=== PATIENT | female | born 1965 | race Two or more races ===

== ENCOUNTER 2020-03-27 14:45 | Inpatient (IN) | payer MEDICARE, OTHER ==
[~2020-03-27] VITALS: Ht 165.1 cm; Wt 67.6 kg
--- NOTE | 2020-03-27 19:10 | NUR ---
GPS RN-NOTE:ADMISSION ADMITTED A 54-YR OLD FEMALE, FROM [facility]. ADMITTED ON 5150 FOR DTO. PER HOLD, PT. ADMITTED D/T INCREASED BIZARRE BEHAVIORS. FAMILY REPORTS, CLIENT REPORTS SHE IS WORKING FOR THE [employer]. DAUGHTER REPORTS CLIENT THREATENED TO SHOOT HER AND HAS BEEN ACTING ERRATIC. UPON FACE TO FACE ASSESSMENT, PATIENT IS A/OX3, LABILE MOOD, PT HAS BEEN DISRUPTIVE, VERY LOUD AND DEMANDING, ANXIOUS, IRRITABLE, DISORGANIZED, PROMPTING FREQUENT REDIRECTIONS. PT WAS ADVISED OF THE HOLD. PT'S RIGHTS HANDBOOK AND A GUIDE TO PRESCRIPTION MEDICATIONS GIVEN. IN NO APPARENT DISTRESS NOTED. BELONGINGS WERE INVENTORIED AND CHECKED FOR CONTRABAND. PT. IS UNDER THE PSYCHIATRIC CARE OF DR. SALGADO ORDERS OBTAINED, AND UNDER THE MEDICAL CARE OF DR. DUNHAM. SKIN BODY ASSESSMENT DONE. SKIN IS INTACT. PT DENIES PAIN/ DISCOMFORT . BED LOCKED AND PLACED IN LOWEST POSITION TO MAINTAIN SAFETY. FALL PRECAUTIONS IMPLEMENTED. WILL CONTINUE TO MONITOR Q15 MINS. FOR SAFETY AND BEHAVIOR.
[2020-03-27 19:30] VITALS: BP 148/60
[2020-03-27] MEDS ORDERED: DIVA500T4 PO (20:15)
[2020-03-27] MEDS ORDERED: BLOOD SUGAR DIAGNOSTIC 1 EACH STRIP IN ONE (20:30)
[2020-03-27 20:46] VITALS: BP 148/60
[2020-03-27] MEDS: ACETAMINOPHEN 325 MG TABLET PO PRN (21:07)
--- NOTE | 2020-03-27 21:07 | NUR ---
GPS-RN NOTE: PATIENT C/O ABDOMINAL PAIN. PT. REQUESTED FOR TYLENOL. ADMINISTERED PRN TYLENOL ORDERED. WILL CONTINUE TO MONITOR AND ASSESS FOR EFFECTIVENESS.
[2020-03-27] MEDS ORDERED: NICO-760 TD (21:47)
[2020-03-27] MEDS: LORAZEPAM 0.5 MG TABLET PO PRN (23:12)
--- NOTE | 2020-03-27 23:12 | NUR ---
GPS-RN NOTE: ANXIETY PATIENT IS VERY ANXIOUS, YELLING AND SCREAMING TOWARDS STAFF, INTRUSIVE, VERY LOUD AND DEMANDING. ADMINISTERED ATIVAN 0.5MG PO ORDERED. WILL CONTINUE TO MONITOR FOR SAFETY AND BEHAVIOR.
[2020-03-27] MEDS: TEMAZEPAM 7.5 MG CAPSULE PO PRN (23:45)
--- NOTE | 2020-03-27 23:45 | NUR ---
GPS-RN NOTE: INSOMNIA PATIENT C/O INABILITY TO SLEEP. ADMINISTERED RESTORIL 7.5MG PO ORDERED. WILL CONTINUE TO MONITOR.
[2020-03-28] MEDS: LORAZEPAM 0.5 MG TABLET PO PRN (05:13)
--- NOTE | 2020-03-28 05:13 | NUR ---
GPS-RN NOTE: ANXIETY PATIENT IS VERY ANXIOUS, INTRUSIVE AND LOUD. ADMINISTERED ATIVAN 0.5MG PO ORDERED. WILL CONTINUE TO MONITOR FOR SAFETY AND BEHAVIOR.
[2020-03-28 06:49] LABS: ALBUMIN 3.3 g/dL (3.4-5.0); BILIRUBIN,TOTAL 0.2 mg/dL (0.2-1.0); CALCIUM, SERUM 9.3 mg/dL (8.5-10.1); CREATININE 0.7 mg/dL (0.6-1.3); POTASSIUM 4.1 mmol/L (3.5-5.1); TOTAL PROTEIN, SERUM 7.7 g/dL (6.4-8.2)
[2020-03-28 06:52] LABS: CHOLESTEROL 137 mg/dL (<200); HDL CHOLESTEROL 57 mg/dL (40-60); LDL 59 mg/dL (0-99); TRIGLYCERIDES 137 mg/dL (30-150)
[2020-03-28] MEDS ORDERED: OLANZAPINE 10 MG VIAL IM ONE (07:30)
--- NOTE | 2020-03-28 07:34 | NUR ---
RN NOTE: IM MEDICATION PT RECEIVED POSTURING TOWARD STAFF, ATTEMPTING TO HIT STAFF. MANIC, HYPERVERBAL. NOT ABLE TO BE REDIRECTED. INTRUSIVE, ATTEMPTING TO GET INTO NURSES STATION. PT REQUESTING SHOT. NOTIFIED DR. SALGADO. ORDER FOR IM INJECTION. PT VOLUNTARILY LAID ON HER STOMACH AND ACCEPTED INJECTION WITHOUT COMPLICATION OR RESISTANCE. PT IMMEDIATELY STATED, "WHERE'S MY COFFEE?". WILL MONITOR FOR FURTHER AGRESSIVE BEHAVIOR, NEED FOR FURTHER PRN MEDICATION AND SIDE EFFECTS OF IM INJECTION
[2020-03-28 08:00] VITALS: BP 131/98
[2020-03-28] MEDS: NICOTINE PATCH (21MG) 21 MG PATCH.TD24 TD SCH (08:49)
[2020-03-28] MEDS ORDERED: LORAZEPAM INJ 2 MG/ML VIAL IM STA (09:16)
[2020-03-28] MEDS ORDERED: HALOPERIDOL LACTATE INJ 5 MG/ML VIAL IM STA (09:16)
[2020-03-28] MEDS ORDERED: diphenhydrAMINE HCL 50 MG/ML VIAL IM STA (09:16)
--- NOTE | 2020-03-28 09:24 | NUR ---
RN NOTE: IM INJECTION PT CONT TO BE MANIC, AGGRESSIVE TOWARDS STAFF WITH ESCALATING BEHAVIOR. POSTURING AT STAFF. VERBALLY AND PHYSICALL AGGRESSIVE. BANGING ON THE NURSING OFFICE DOOR AND WINDOWS. DELUSIONAL AND PARANOID. REQUESTING IM MEDICATION. ORDER FROM DR. SALGADO FOR HALDOL 5MG, ATIVAN 1MG AND BENADRYL 25 MG IM. PT VOLUNTARILY LAID ON HER STOMACH AND STATED "YES" WHEN TOLD WHAT MEDICATIONS WERE ORDERED. IM TO BILAT GLUT WITHOUT COMPLICATION OR OPPOSITION FROM PT. PT STATED, "THANK YOU". AFTER IM ADMINISTRATION. WILL MONITOR FOR CONT'D AGGRESSIVE BEHAVIOR, IM EFFECTIVENESS AND ADVERSE REACTIONS.
--- NOTE | 2020-03-28 13:00 | NUR ---
RN NOTE: RESPIRATORY AT BEDSIDE FOR EKG
--- NOTE | 2020-03-28 13:00 | NUR ---
RN NOTE - 1:1 ORDER PT CONT TO BE AGITATED WHILE AWAKE. AFTER IM ADMINISTRATION PT FELL ASLEEP. WHILE ATTEMPTING TO GET AN EKG, PT AWAKENED AND BECAME AGGRESSIVE, BELIGERENT AND RESISTIVE. PT MOVED TO ROOM FURTHER AWAY FROM EXIT DOOR. DR. SALGADO NOTIFIED AND 1:1 ORDER MADE.
--- NOTE | 2020-03-28 13:22 | NUR ---
RN-CO: Patient remains restless, non redirectable trying to AWOL. Dr. Alonso ordered 1:1 sitter until further order. For now the Haldol, Ativan, Benadryl that was given to her is ineffective.
--- NOTE | 2020-03-28 15:09 | NUR ---
Family Contact: SW spoke to the pts daughter, Haile ([phone]), and received collateral information for the psychosocial assessment as the pt was not cooperative. JULIUS then discussed the discharge plan to have the pt to return home and the pts daughter agreed.
--- NOTE | 2020-03-28 15:46 | NUR ---
Initial Discharge Plan: Pt currently resides in her home alone located at [address] [place] [address]; ([phone]). Per pt, she would like to return to her home. JULIUS will work with the pt and the MD regarding appropriate discharge planning. SW will form a safe and proper discharge.
--- NOTE | 2020-03-28 15:51 | NUR ---
Individual Counseling: The patient is currently not appropriate for individual counseling as they are manic, agitated and not able to engage in meaningful conversation. The patient will be invited to the next the therapeutic milieu.
[2020-03-28 16:00] VITALS: BP 128/63
[2020-03-28] MEDS ORDERED: OLANZAPINE 5 MG TABLET PO SCH (19:43)
[2020-03-28] MEDS ORDERED: DIVALPROEX SODIUM 500 MG TABLET.DR PO SCH ×2 (20:00→21:00)
--- NOTE | 2020-03-28 20:00 | NUR ---
GPS RN NOTES: THERE IS AN ORDER FOR A 1:1 SITTER FOR THIS PATIENT, HOWEVER NONE PROVIDED AT THIS TIME.WILL CLOSELY MONITOR PATIENT AND HER BEHAVIOR WELL.
[2020-03-28 20:04] VITALS: BP 114/56
[2020-03-29 01:33] LABS: APPEARANCE,URINE CLEAR (CLEAR); BILIRUBIN,URINE NEGATIVE (NEGATIVE); BLOOD, URINE NEGATIVE Ery/uL (NEGATIVE); COLOR,URINE YELLOW (YELLOW); KETONES,URINE NEGATIVE (NEGATIVE); LEUKOCYTE ESTERASE ,URINE TRACE (NEGATIVE); NITRITE, URINE NEGATIVE (NEGATIVE); PROTEIN,URINE NEGATIVE (NEGATIVE); UGLUCOSE NEGATIVE (NEGATIVE); UROBILINOGEN,URINE 0.2 EU/dL (0.2)
[2020-03-29 02:07] LABS: BACTERIA,URINE Few /HPF (None Seen); RBC,URINE 0-2 /HPF (0-2); SQUAMOUS EPITHELIAL CELL,UR Few /HPF (None Seen); WBC,URINE 21-50 /HPF (0-3)
--- NOTE | 2020-03-29 05:41 | NUR ---
GPS-RN NOTE: SEALING MACHINE OPERATOR MÓNICA GLASER NOTIFIED OF URINE WBC RESULTED TO 21-50. URINE CULTURE STILL PENDING. AWAITING FOR CALL BACK.
--- NOTE | 2020-03-29 05:44 | NUR ---
GPS-RN NOTE: PER JOSHUA GLASER NO NEW ORDER AT THIS TIME.
[2020-03-29 07:01] LABS: BASOPHILS % (AUTO) 0.4 % (0.0-2.0); HEMATOCRIT 39 % (33-45); HEMOGLOBIN 12.6 g/dL (11.5-14.8); LYMPHOCYTES # (AUTO) 2.6 /CMM (0.8-4.8); LYMPHOCYTES % (AUTO) 22.1 % (20.0-44.0); MEAN CORPUSCULAR HGB CONC 32 g/dl (31.0-36.0); MEAN CORPUSCULAR VOLUME 82 fL (82-100); MONOCYTES # (AUTO) 1.1 /CMM (0.1-1.30); MONOCYTES % (AUTO) 9.3 % (2.0-12.0); NEUTROPHILS # (AUTO) 7.8 /CMM (1.8-8.9); NEUTROPHILS % (AUTO) 67.2 % (43.0-81.0); PLATELET COUNT (AUTO) 327 /CMM (150-450); RED BLOOD CELL COUNT(AUTO) 4.75 MIL/uL (4.0-5.2); WHITE BLOOD COUNT (AUTO) 11.6 K/uL (4.3-11.0)
[2020-03-29 07:08] LABS: CALCIUM, SERUM 9.8 mg/dL (8.5-10.1); CREATININE 0.9 mg/dL (0.6-1.3); MAGNESIUM 1.7 mg/dL (1.8-2.4); PHOSPHORUS 3.1 mg/dL (2.5-4.9); POTASSIUM 3.8 mmol/L (3.5-5.1)
[2020-03-29 07:24] LABS: THYROID STIMULATING HORMONE 1.541 uIU/mL (0.358-3.74)
[2020-03-29 08:00] VITALS: BP 131/70
[2020-03-29] MEDS: NICOTINE PATCH (21MG) 21 MG PATCH.TD24 TD SCH (08:30)
[2020-03-29] MEDS: ACETAMINOPHEN 325 MG TABLET PO PRN ×2 (08:34→15:26)
--- NOTE | 2020-03-29 09:06 | NUR ---
Pt. is highly agitated, verbally abusive, loud, intrusive, slamming the door and throwing trash can paper in the hallway. Notified Dr. Alonso and ordered Zyprexa 10 mg IM.
[2020-03-29] MEDS ORDERED: OLANZAPINE 10 MG VIAL IM ONE (09:30)
[2020-03-29] MEDS ORDERED: MAGNESIUM OXIDE 400 MG TABLET PO ONE (10:30)
[2020-03-29] MEDS: OLANZAPINE 5 MG TABLET PO SCH ×2 (12:19→17:39)
--- NOTE | 2020-03-29 12:32 | NUR ---
Dr. Alonso came in the unit and ordered to d/c 1:1.
[2020-03-29] MEDS ORDERED: HALOPERIDOL LACTATE INJ 5 MG/ML VIAL IM ONE (14:00)
[2020-03-29] MEDS ORDERED: LORAZEPAM INJ 2 MG/ML VIAL IM ONE (14:00)
[2020-03-29] MEDS ORDERED: diphenhydrAMINE HCL 50 MG/ML VIAL IM ONE (14:00)
--- NOTE | 2020-03-29 14:00 | NUR ---
NURSING NOTE: PT IS IN THE HALLWAY, YELLING AND SCREAMING, AGITATED, THREW WATER AT RN AND THREW MILK AT THE NURSE'S STATION WINDOW, UNABLE TO REDIRECT, DR. SALGADO HAS BEEN NOTIFIED. ORDER FOR ATIVAN 1 MG IM, HALDOL 10 MG IM, BENADRYL 25 MG IM X1 NOW HAS BEEN GIVEN. WILL CONTINUE TO MONITOR FOR SAFETY AND BEHAVIOR.
--- NOTE | 2020-03-29 19:50 | NUR ---
GPS RN OPENING NOTE: RECEIVED PATIENT SLEEPING IN BED.NO ACUTE DISTRESS NOTED. PT COOPERATIVE, EASILY GETS IRRITATED, DEMANDING, REDIRECTABLE, MED COMPLIANT, OFFERED SNACKS TOLERATED WELL. SAFETY PRECAUTIONS IN PLACE, WILL PROVIDE CALM AND STRUCTURED ENVIRONMENT. WILL CONTINUE TO MONITOR Q15MIN ROUNDS FOR SAFETY AND BEHAVIOR.
[2020-03-29] MEDS: CEPHALEXIN MONOHYDRATE 500 MG CAPSULE PO SCH (20:41)
[2020-03-29] MEDS: DIVALPROEX SODIUM 500 MG TABLET.DR PO SCH (20:41)
[2020-03-30] MEDS ORDERED: diphenhydrAMINE HCL 50 MG/ML VIAL IM STA ×2 (07:38)
[2020-03-30] MEDS ORDERED: LORAZEPAM INJ 2 MG/ML VIAL IM STA (07:38)
[2020-03-30] MEDS ORDERED: HALOPERIDOL LACTATE INJ 5 MG/ML VIAL IM STA (07:52)
[2020-03-30 08:00] VITALS: BP 145/59
--- NOTE | 2020-03-30 08:41 | NUR ---
GPS RN NOTE: Chemical Restraint Upon arrival to unit patient was agitated, aggressive, at nursing station banging on door, intrusive. Patient attempted to call 911. Patient is delusional and stated scientific technical writer "killed [employer] Dunne". Patient is not redirectable and when breakfast arrived patient threw down tray on floor. Due to escalating behavior Dr Alonso was notified and an order for IM haldol 10mg Benadryl 25mg and Ativan 1mg was ordered once, now. With the help of staff and security the order was fulfilled around 0815. Will continue to monitor behavior, mood, vital signs and safety Q15 as per GPS policy.
[2020-03-30] MEDS: NICOTINE PATCH (21MG) 21 MG PATCH.TD24 TD SCH ×2 (09:00→12:46)
[2020-03-30] MEDS: OLANZAPINE 5 MG TABLET PO SCH (09:03)
[2020-03-30] MEDS: CEPHALEXIN MONOHYDRATE 500 MG CAPSULE PO SCH ×2 (09:03→21:00)
[2020-03-30] MEDS: ACETAMINOPHEN 325 MG TABLET PO PRN (11:48)
[2020-03-30] MEDS: HALOPERIDOL 5 MG TABLET PO SCH ×2 (12:43→17:00)
--- NOTE | 2020-03-30 12:48 | NUR ---
RT ATTEMPTED TO PERFORM EKG TEST BUT PATIENT REFUSED AND UNCOOPERATIVE. RN AWARE
--- NOTE | 2020-03-30 14:24 | NUR ---
Group Note/Individual Session: SW encouraged the pt to participate in group therapy but the pt is labile and aggressive. Pt has been cursing at the SW, has been accusatory towards the SW and has been banging her hands on the windows of the nursing station. Pt has been refusing her medications and has been receiving multiple IMs daily. SW deemed this pt inappropriate for group at this time.
[2020-03-30 16:00] VITALS: BP 141/56
--- NOTE | 2020-03-30 17:10 | NUR ---
GPS RN NOTE: Med Refusal patient refused 1700 Haldol stating that "it makes me ill". Patient was educated on risks and benefits of taking medication but continued to refuse. will continue to monitor
[2020-03-30 20:38] VITALS: BP 128/46
[2020-03-30] MEDS: DIVALPROEX SODIUM 500 MG TABLET.DR PO SCH (21:00)
--- NOTE | 2020-03-30 22:10 | NUR ---
Pt refused medications Depakote and Keflex 2100. Offered x3 and risk and benefits. Still refused. Charge nurse aware. Will continue to monitor and will endorse to next shift.
[2020-03-31] MEDS: ACETAMINOPHEN 325 MG TABLET PO PRN ×2 (06:13→12:08)
--- NOTE | 2020-03-31 06:16 | NUR ---
Pt c/o back pain 12/20. Tylenol 650 mg po prn given as ordered. Will continue to monitor.
[2020-03-31] MEDS: MAG HYDROX/AL HYDROX/SIMETH 30 ML UDC PO PRN (07:00)
--- NOTE | 2020-03-31 07:02 | NUR ---
Pt c/o indigestion. Maalox 30 ml po prn given as ordered. Will continue to monitor. Will endorse to next shift.
[2020-03-31 08:00] VITALS: BP 153/59
[2020-03-31] MEDS: HALOPERIDOL 5 MG TABLET PO SCH ×2 (08:55→17:33)
[2020-03-31] MEDS: CEPHALEXIN MONOHYDRATE 500 MG CAPSULE PO SCH ×2 (08:55→21:30)
[2020-03-31] MEDS: NICOTINE PATCH (21MG) 21 MG PATCH.TD24 TD SCH (08:56)
[2020-03-31] MEDS ORDERED: HALOPERIDOL 5 MG TABLET PO ONE (12:00)
[2020-03-31] MEDS: DIVALPROEX SODIUM 500 MG TABLET.DR PO SCH (12:07)
[2020-03-31] MEDS: LORAZEPAM 0.5 MG TABLET PO PRN (12:07)
--- NOTE | 2020-03-31 15:24 | NUR ---
GROUP NOTE/INDIVIDUAL SESSION: SW encouraged the pt to participate in group therapy but the pt is labile and verbally aggressive. Pt refused to engage with SW. SW deemed this pt inappropriate for group at this time.
[2020-03-31 16:00] VITALS: BP 135/71
[2020-03-31] MEDS: LITHIUM CARBONATE 150 MG CAPSULE PO SCH (17:32)
[2020-03-31 20:44] VITALS: BP 154/57
--- NOTE | 2020-03-31 21:09 | NUR ---
RN notes Informed and notified Dr. Alonso regarding Pt's meds Depakote 500mg/3 tabs scheduled at 2100 and Depakote 250mg/4 tabs scheduled at 2200. MD ordered to D/C Depakote 500mg/3 tabs and continue Depakote 250mg/4 tabs. Telephone order read back. Order carried out. Charge nurse is aware and informed.
[2020-03-31] MEDS: DIVALPROEX SODIUM 250 MG TABLET.DR PO SCH (21:30)
[2020-04-01 08:00] VITALS: BP 154/90
[2020-04-01] MEDS: DIVALPROEX SODIUM 500 MG TABLET.DR PO SCH (08:33)
[2020-04-01] MEDS: LITHIUM CARBONATE 150 MG CAPSULE PO SCH ×2 (08:33→16:38)
[2020-04-01] MEDS: NICOTINE PATCH (21MG) 21 MG PATCH.TD24 TD SCH (08:33)
[2020-04-01] MEDS: HALOPERIDOL 5 MG TABLET PO SCH ×2 (08:34→16:38)
[2020-04-01] MEDS: CEPHALEXIN MONOHYDRATE 500 MG CAPSULE PO SCH ×2 (08:34→21:09)
[2020-04-01] MEDS: ACETAMINOPHEN 325 MG TABLET PO PRN ×2 (10:18→20:23)
[2020-04-01] MEDS: LORAZEPAM 0.5 MG TABLET PO PRN (10:59)
--- NOTE | 2020-04-01 13:05 | NUR ---
GPS/RN PT IS PACING IN THE HALLWAY. FIXATED ON PHONE CALLS. PORTABLE PHONE PROVIDED REQUESTED. PT IS RUDE AND USES PROFANITY TO STUFF MEMBERS.
[2020-04-01 16:00] VITALS: BP 141/48
[2020-04-01 20:05] VITALS: BP 141/50
--- NOTE | 2020-04-01 20:23 | NUR ---
GPS RN NOTE, PATIENT HAS A COMPLAINT OF A HEADACHE AT 5 OUT 10 ON THE PAIN SCALE AND IS REQUESTING TYLENOL AT THIS TIME. PATIENT VITAL SIGNS ARE STABLE. GAVE TYLENOL 650 MG PO Q6HR PRN ORDERED. WILL REASSESS PAIN AND I WILL CONTINUE TO MONITOR THIS PATIENT.
[2020-04-01] MEDS: DIVALPROEX SODIUM 250 MG TABLET.DR PO SCH (21:09)
[2020-04-02] MEDS: NICOTINE PATCH (21MG) 21 MG PATCH.TD24 TD SCH (07:50)
[2020-04-02] MEDS: LORAZEPAM 0.5 MG TABLET PO PRN ×2 (07:51→17:33)
[2020-04-02] MEDS: DIVALPROEX SODIUM 500 MG TABLET.DR PO SCH (07:51)
[2020-04-02] MEDS: LITHIUM CARBONATE 150 MG CAPSULE PO SCH ×2 (07:51→16:46)
[2020-04-02] MEDS: CEPHALEXIN MONOHYDRATE 500 MG CAPSULE PO SCH ×2 (07:51→21:12)
[2020-04-02] MEDS: HALOPERIDOL 5 MG TABLET PO SCH ×2 (07:54→16:46)
[2020-04-02 08:00] VITALS: BP 139/59
[2020-04-02 16:00] VITALS: BP 128/65
[2020-04-02 20:13] VITALS: BP 120/49
[2020-04-02] MEDS: DIVALPROEX SODIUM 250 MG TABLET.DR PO SCH (21:12)
--- NOTE | 2020-04-03 06:26 | NUR ---
GPS RN CLOSING NOTE, PATIENT AWAKE AT THIS TIME, WALKING IN HALLWAY, NO SOB/ACUTE DISTRESS NOTED, NO SIGNIFICANT CHANGE IN CONDITION DURING THE NIGHT, COOPERATIVE AND COMPLIANT WITH CARE AND MEDICATIONS, ALL NEEDS PROVIDED, SAFETY PRECAUTIONS IN PLACE, BED LOCKED POSITION AND LOWEST POSITION, BED ALARM ON, HOB ELEVATED TO SEMI FOWLERS POSITION, CALL LIGHT WITHIN REACH, WILL ENDORSE CONTINUITY OF CARE TO ONCOMING NURSE.
[2020-04-03 08:00] VITALS: BP 143/68
[2020-04-03] MEDS: NICOTINE PATCH (21MG) 21 MG PATCH.TD24 TD SCH (08:10)
[2020-04-03] MEDS: CEPHALEXIN MONOHYDRATE 500 MG CAPSULE PO SCH ×2 (08:10→21:12)
[2020-04-03] MEDS: LITHIUM CARBONATE 150 MG CAPSULE PO SCH ×2 (08:10→16:28)
[2020-04-03] MEDS: DIVALPROEX SODIUM 500 MG TABLET.DR PO SCH (08:10)
[2020-04-03] MEDS: HALOPERIDOL 5 MG TABLET PO SCH ×2 (08:10→16:28)
[2020-04-03] MEDS: ACETAMINOPHEN 325 MG TABLET PO PRN ×2 (10:18→18:54)
--- NOTE | 2020-04-03 10:20 | NUR ---
RN NOTE: PAIN PT C/O 12/20 HEADACHE. MEDICATED WITH TYLENOL PRN
[2020-04-03 16:00] VITALS: BP 133/57
--- NOTE | 2020-04-03 16:06 | NUR ---
GROUP NOTE: SW encouraged the pt to participate in group therapy but the pt refused, pt is labile and verbally aggressive. Pt refused to engage with SW. SW deemed this pt inappropriate for group at this time.
[2020-04-03] MEDS: LORAZEPAM 0.5 MG TABLET PO PRN (16:40)
--- NOTE | 2020-04-03 16:40 | NUR ---
RN NOTE: ANXIETY PT C/O INCREASED ANXIETY. MEDICATED WITH ATIVAN 1MG PO PRN
[2020-04-03 20:08] VITALS: BP 132/50
[2020-04-03] MEDS: DIVALPROEX SODIUM 250 MG TABLET.DR PO SCH (21:12)
[2020-04-04] MEDS: ACETAMINOPHEN 325 MG TABLET PO PRN ×2 (06:34→13:15)
--- NOTE | 2020-04-04 06:36 | NUR ---
gps rn notes: back pain Pt c/o back pain 12/20. Tylenol 650 mg po prn given as ordered. Will continue to monitor.
[2020-04-04 08:00] VITALS: BP 144/80
[2020-04-04] MEDS: HALOPERIDOL 5 MG TABLET PO SCH ×2 (08:21→16:02)
[2020-04-04] MEDS: LITHIUM CARBONATE 150 MG CAPSULE PO SCH ×2 (08:21→16:02)
[2020-04-04] MEDS: NICOTINE PATCH (21MG) 21 MG PATCH.TD24 TD SCH (08:21)
[2020-04-04] MEDS: DIVALPROEX SODIUM 500 MG TABLET.DR PO SCH (08:21)
[2020-04-04] MEDS: CEPHALEXIN MONOHYDRATE 500 MG CAPSULE PO SCH ×2 (08:21→21:00)
[2020-04-04] MEDS: BENZTROPINE MESYLATE (1 MG) 1 MG TABLET PO SCH ×2 (10:43→16:02)
[2020-04-04] MEDS: MAGNESIUM HYDROXIDE 30 ML UDC PO PRN (11:40)
--- NOTE | 2020-04-04 11:40 | NUR ---
RN NOTE: PT C/O CONSTIPATION. MEDICATED WITH MILK OF MAGNESIUM PRN
[2020-04-04] MEDS: LORAZEPAM 0.5 MG TABLET PO PRN (13:15)
--- NOTE | 2020-04-04 13:17 | NUR ---
RN NOTE: AGITATION AND PAIN PT MANIC. PACING HALLWAY. REPEATING THE SAME REQUEST OVER AND OVER. UNABLE TO BE REDIRECTED. POOR SHORT TERM MEMORY. MULTIPLE CONPLAINTS AT THE SAME TIME. PT ALSO C/O 12/20 HEADACHE. MEDICATED WITH [id number] MG AND ATIVAN 1MG PO PRN.
--- NOTE | 2020-04-04 15:26 | NUR ---
GROUP NOTE JULIUS encouraged the pt to participate in group therapy, however, pt is not appropriate at this time. Pt is easily agitated and confrontational when asked questions. Pt came close to SW's face and SW had to step out of the room. Addendum: 04/04/20 at 1528 by ELVIE MADRID ERROR
--- NOTE | 2020-04-04 15:28 | NUR ---
GROUP NOTE: SW encouraged the pt to participate in group therapy, however, pt is not appropriate at this time. Pt is easily agitated and confrontational when asked questions. Pt came close to SW's face and stated, "Don't touch me." SW had to step out of the pts room.
[2020-04-04 16:00] VITALS: BP 131/69
[2020-04-04 19:56] LABS: ALBUMIN 3.2 g/dL (3.4-5.0); BILIRUBIN,TOTAL 0.1 mg/dL (0.2-1.0); CALCIUM, SERUM 9.5 mg/dL (8.5-10.1); CREATININE 0.8 mg/dL (0.6-1.3); TOTAL PROTEIN, SERUM 7.6 g/dL (6.4-8.2)
[2020-04-04 20:00] VITALS: BP 120/98
[2020-04-04 20:02] LABS: BASOPHILS % (AUTO) 0.4 % (0.0-2.0); EOSINOPHILS % (AUTO) 1.6 % (0.0-6.0); HEMATOCRIT 38 % (33-45); HEMOGLOBIN 12.4 g/dL (11.5-14.8); LYMPHOCYTES % (AUTO) 28.7 % (20.0-44.0); MEAN CORPUSCULAR HGB CONC 32 g/dl (31.0-36.0); MEAN CORPUSCULAR VOLUME 83 fL (82-100); MONOCYTES % (AUTO) 9.9 % (2.0-12.0); NEUTROPHILS # (AUTO) 6.3 /CMM (1.8-8.9); NEUTROPHILS % (AUTO) 59.4 % (43.0-81.0); PLATELET COUNT (AUTO) 303 /CMM (150-450); WHITE BLOOD COUNT (AUTO) 10.5 K/uL (4.3-11.0)
[2020-04-04] MEDS: DIVALPROEX SODIUM 250 MG TABLET.DR PO SCH (21:00)
[2020-04-04] MEDS: TEMAZEPAM 7.5 MG CAPSULE PO PRN (22:00)
--- NOTE | 2020-04-04 22:02 | NUR ---
GPS RN NOTES: INSOMNIA PT C/O UNABLE TO SLEEP. PT REQUESTED SLEEPING MEDICATION. OFFERED RESTORIL 7.5 MG PO PRN ORDERED. PT AGREED AND TOLERATED MEDICATION WELL. CONTINUE TO MONITOR.
[2020-04-05 08:00] VITALS: BP 125/55
[2020-04-05 08:44] LABS: BASOPHILS # (AUTO) 0.1 /CMM (0.0-0.2); BASOPHILS % (AUTO) 0.5 % (0.0-2.0); EOSINOPHILS % (AUTO) 1.1 % (0.0-6.0); HEMATOCRIT 40 % (33-45); HEMOGLOBIN 12.7 g/dL (11.5-14.8); LYMPHOCYTES # (AUTO) 2.6 /CMM (0.8-4.8); LYMPHOCYTES % (AUTO) 23.2 % (20.0-44.0); MEAN CORPUSCULAR HGB CONC 32 g/dl (31.0-36.0); MEAN CORPUSCULAR VOLUME 82 fL (82-100); MONOCYTES # (AUTO) 0.9 /CMM (0.1-1.30); MONOCYTES % (AUTO) 8.5 % (2.0-12.0); NEUTROPHILS # (AUTO) 7.4 /CMM (1.8-8.9); NEUTROPHILS % (AUTO) 66.7 % (43.0-81.0); PLATELET COUNT (AUTO) 313 /CMM (150-450); RED BLOOD CELL COUNT(AUTO) 4.87 MIL/uL (4.0-5.2)
[2020-04-05 09:04] LABS: ALBUMIN 3.4 g/dL (3.4-5.0); BILIRUBIN,TOTAL 0.2 mg/dL (0.2-1.0); CALCIUM, SERUM 9.7 mg/dL (8.5-10.1); CREATININE 0.9 mg/dL (0.6-1.3); POTASSIUM 4.1 mmol/L (3.5-5.1); TOTAL PROTEIN, SERUM 7.8 g/dL (6.4-8.2)
[2020-04-05] MEDS: NICOTINE PATCH (21MG) 21 MG PATCH.TD24 TD SCH (09:31)
[2020-04-05] MEDS: LITHIUM CARBONATE 150 MG CAPSULE PO SCH ×2 (09:32→16:42)
[2020-04-05] MEDS: DIVALPROEX SODIUM 500 MG TABLET.DR PO SCH (09:32)
[2020-04-05] MEDS: CEPHALEXIN MONOHYDRATE 500 MG CAPSULE PO SCH (09:32)
[2020-04-05] MEDS: BENZTROPINE MESYLATE (1 MG) 1 MG TABLET PO SCH ×2 (09:32→16:44)
--- NOTE | 2020-04-05 10:11 | NUR ---
Family Contact: SW called the pts daughter, Haile ([phone]), and left a voicemail stating that the SW would like to discuss the pts behavior and discharge plan.
[2020-04-05] MEDS: HALOPERIDOL 5 MG TABLET PO SCH ×2 (11:02→16:42)
--- NOTE | 2020-04-05 13:10 | NUR ---
Family Contact: JULIUS called the pts daughter, Haile ([phone]), and informed her that the pt has been stabilizing on the medications and has shown improvement in her behavior. JULIUS stated that the MD has a discharge date for the pt for Friday and confirmed that the pts daughter would be able to pick her up and take her home. Pts daughter stated that she will call the SW back with the time for Friday.
[2020-04-05] MEDS: LORAZEPAM 0.5 MG TABLET PO PRN (14:05)
--- NOTE | 2020-04-05 15:08 | NUR ---
Group Note: SW encouraged the pt to participate in group therapy on 04/05/20 but the pt refused, pt is labile and verbally aggressive. Pt refused to engage with SW. SW deemed this pt inappropriate for group at this time. SW informed the pt that she will be discharged on Friday and the pt stated that news makes her feel better.
[2020-04-05 16:00] VITALS: BP 133/71
[2020-04-05] MEDS: MAGNESIUM HYDROXIDE 30 ML UDC PO PRN (16:00)
--- NOTE | 2020-04-05 16:01 | NUR ---
RNHeatherCO: MOM given for c/o of constipation.
[2020-04-05 19:39] VITALS: BP 122/56
[2020-04-05] MEDS: DIVALPROEX SODIUM 250 MG TABLET.DR PO SCH (21:07)
[2020-04-05] MEDS: MAG HYDROX/AL HYDROX/SIMETH 30 ML UDC PO PRN (21:57)
--- NOTE | 2020-04-05 21:57 | NUR ---
GPS RN NOTE: INDIGESTION PT. C/O OF INDIGESTION. ADMINISTERED MAALOX 30 ML PO PRN ORDERED AND TOLERATED WELL. WILL CONTINUE TO MONITOR FOR SAFETY AND BEHAVIOR
[2020-04-05] MEDS: TEMAZEPAM 7.5 MG CAPSULE PO PRN (22:55)
--- NOTE | 2020-04-05 22:55 | NUR ---
GPS RN NOTE: INSOMNIA PT. C/O UNABLE TO SLEEP AND REQUESTED SLEEPING PILL. ADMINISTERED RESTORIL 7.5 MG PO PRN ORDERED AND MARQUIS. WELL. WILL CONTINUE TO MONITOR FOR SAFETY AND BEHAVIOR
[2020-04-06 08:00] VITALS: BP 120/58
[2020-04-06] MEDS: HALOPERIDOL 5 MG TABLET PO SCH ×2 (08:07→17:11)
[2020-04-06] MEDS: NICOTINE PATCH (21MG) 21 MG PATCH.TD24 TD SCH (08:07)
[2020-04-06] MEDS: LITHIUM CARBONATE 150 MG CAPSULE PO SCH ×2 (08:07→17:11)
[2020-04-06] MEDS: DIVALPROEX SODIUM 500 MG TABLET.DR PO SCH (08:08)
[2020-04-06] MEDS: BENZTROPINE MESYLATE (1 MG) 1 MG TABLET PO SCH ×2 (08:08→17:12)
[2020-04-06] MEDS: LORAZEPAM 0.5 MG TABLET PO PRN (12:52)
--- NOTE | 2020-04-06 12:53 | NUR ---
RN-CO: ATIVAN 1 MG PO GIVEN FOR MOD ANXIETY.
--- NOTE | 2020-04-06 15:24 | NUR ---
Family Contact: SW called the pts daughter, Haile ([phone]), and left a voicemail stating that the pt can be picked up at 11am the following day.
--- NOTE | 2020-04-06 15:25 | NUR ---
Group Note: SW encouraged the pt to participate in group therapy on 04/06/20 but the pt refused because she was talking to her daughter on the phone regarding her discharge and she did not want to be interrupted. SW confirmed with her that she is feeling discharged the following day and was attempting to discuss with the pt how she would take care of her means the pt did not want to talk.
[2020-04-06 16:00] VITALS: BP 125/57
[2020-04-06] MEDS: MAGNESIUM HYDROXIDE 30 ML UDC PO PRN (19:32)
--- NOTE | 2020-04-06 19:33 | NUR ---
GPS RN NOTES: CONSTIPATION PT C/O OF FEELING CONSTIPATED. PT REQUESTED MOM. MOM 30 ML PRN ORDERED GIVEN. CONTINUE TO MONITOR
[2020-04-06] MEDS: ACETAMINOPHEN 325 MG TABLET PO PRN (19:54)
--- NOTE | 2020-04-06 19:55 | NUR ---
GPS RN NOTES: PAIN PT C/O OF BACK PAIN. PT REQUESTED TYLENOL 650 MG PO PRN ORDERED. PT AGREED AND TOLERATED MEDS WELL CONTINUE TO MONITOR.
[2020-04-06 20:00] VITALS: BP 119/40
[2020-04-06] MEDS: DIVALPROEX SODIUM 250 MG TABLET.DR PO SCH (21:18)
[2020-04-06] MEDS: TEMAZEPAM 7.5 MG CAPSULE PO PRN (22:21)
[2020-04-06 22:22] VITALS: BP 134/53
--- NOTE | 2020-04-06 22:28 | NUR ---
GPS RN NOTES: INSOMNIA PT C/O OF INSOMNIA. PT REQUESTED SLEEPING PILL. OFFERED RESTORIL 7.5 MG PO PRN ORDERED. PT AGREED AND TOLERATED MEDICATION WELL. CONTINUE TO MONITOR.
[2020-04-07 06:50] LABS: BASOPHILS # (AUTO) 0.1 /CMM (0.0-0.2); BASOPHILS % (AUTO) 0.5 % (0.0-2.0); EOSINOPHILS % (AUTO) 1.5 % (0.0-6.0); HEMATOCRIT 41 % (33-45); LYMPHOCYTES # (AUTO) 2.6 /CMM (0.8-4.8); MEAN CORPUSCULAR HGB CONC 32 g/dl (31.0-36.0); MEAN CORPUSCULAR VOLUME 83 fL (82-100); MONOCYTES % (AUTO) 8.7 % (2.0-12.0); NEUTROPHILS # (AUTO) 7.9 /CMM (1.8-8.9); NEUTROPHILS % (AUTO) 67.3 % (43.0-81.0); PLATELET COUNT (AUTO) 350 /CMM (150-450); RED BLOOD CELL COUNT(AUTO) 4.92 MIL/uL (4.0-5.2); WHITE BLOOD COUNT (AUTO) 11.7 K/uL (4.3-11.0)
[2020-04-07 07:24] LABS: ALBUMIN 3.3 g/dL (3.4-5.0); BILIRUBIN,TOTAL 0.2 mg/dL (0.2-1.0); CALCIUM, SERUM 9.6 mg/dL (8.5-10.1); CREATININE 0.7 mg/dL (0.6-1.3); POTASSIUM 4.6 mmol/L (3.5-5.1); TOTAL PROTEIN, SERUM 7.5 g/dL (6.4-8.2)
[2020-04-07 08:00] VITALS: BP 135/50
[2020-04-07] MEDS: NICOTINE PATCH (21MG) 21 MG PATCH.TD24 TD SCH (08:13)
[2020-04-07] MEDS: HALOPERIDOL 5 MG TABLET PO SCH (08:13)
[2020-04-07] MEDS: BENZTROPINE MESYLATE (1 MG) 1 MG TABLET PO SCH (08:13)
[2020-04-07] MEDS: DIVALPROEX SODIUM 500 MG TABLET.DR PO SCH (08:13)
[2020-04-07] MEDS: LITHIUM CARBONATE 150 MG CAPSULE PO SCH (08:13)
--- NOTE | 2020-04-07 09:00 | NUR ---
RN NOTE- PT ALERT ORIENTED VISIBLE ON UNIT FOCUSED ON BREAKFAST AND UPCOMING DC. MED COMPLIANT DENIES ALL DIRECTABLE
--- NOTE | 2020-04-07 10:45 | NUR ---
RN NOTE- PT DISCHARGED AT THIS TIME INTO CARE OF DAUGHTER. PT DISCHARGE PLANNING REVIEWED W FAMILY MEMBER AND PATIENT. VERBALIZED UNDERSTANDING. PT STATED SHE HAD A GOLD METAL RING BUT IT WASN'T ON INVENTORY. SEARCH OF CHART REVEALED RECEIPT FOR GOLD METAL RING TAKEN AT [facility] ON INITIAL ADMISSION THERE. I INCLUDED RECEIPT W INSTRUCTIONS AND DAUGHTER STATED THEY'D DRIVE THERE AND SPECIAL NEEDS TUTOR. VS STABLE ON DISCHARGE, DENIES SI HI AH VH. ALERT ORIENTED CALM DIRECTABLE . ID [id number] REMOVED, VALUABLES RETURNED AND ESCORTED OFF UNIT. SIGNED OVER TO CARE OF DAUGHTER.
--- NOTE | 2020-04-07 16:16 | NUR ---
Discharge Note: Pt was discharged to her home located at [address] [place] [id number]; ([phone]). Pts daughter, Haile ([phone]), picked up the pt around 11AM. Upon discharge, the pt appeared to be in a euthymic mood and presents with a calm affect. Pt appears to be alert and oriented x4 (time, place, self and situation). Pt appears to be disheveled, distressed, and ungroomed. Pt denied visual/auditory hallucinations and denied suicidal/homicidal ideation. Pt will be under the care of his psychiatrist, Dr. Amor Finley, located at [id number] [place] [id number]; and compensator, [facility], located at [address] [address], [place] [address]; ; fax was sent to ([phone]).
== END 2020-04-07 10:45 | disposition home or self-care (01) | DRG 885 ==
LOC: GPS 18:56
PROVIDERS: ADMIT Psychiatry & Neurology Psychosomatic Medicine; ATTEND Internal Medicine
DX: F25.0 Schizoaffective disorder, bipolar type (principal); E44.1 Mild protein-calorie malnutrition; N39.0 Urinary tract infection, site not specified; F29 Unspecified psychosis not due to a substance or known physiological condition; F32.9 Major depressive disorder, single episode, unspecified; F17.200 Nicotine dependence, unspecified, uncomplicated; F41.9 Anxiety disorder, unspecified; Z73.6 Limitation of activities due to disability; R27.8 Other lack of coordination; Z91.81 History of falling; E83.42 Hypomagnesemia; K59.00 Constipation, unspecified; Z79.899 Other long term (current) drug therapy; Z91.14 Patient's other noncompliance with medication regimen; R53.1 Weakness
CPT/HCPCS: 36415; 80048-TC; 80053-TC; 80061-TC; 80164-TC; 80305; 81000-TC; 83735-TC; 84100-TC; 84443-TC; 85025-TC; 87081-TC; 87086-TC; J1200; J1630; J2060; J3490